=== PATIENT | female | born 1990 | race Two or more races ===

== ENCOUNTER 2025-05-18 21:42 | Emergency (ER) | payer OTHER ==
[~2025-05-18] VITALS: Ht 157.5 cm; Wt 69.3 kg
--- NOTE | 2025-05-18 22:11 | DVH ---
Date: 05/18/2025 09:57 PM Examination: XY KUB ABDOMEN SINGLE VIEW History: constipation Comparison: None TECHNIQUE: Frontal views of the abdomen was obtained. FINDINGS: Bowel gas pattern is unremarkable. The lung bases are unremarkable. No acute osseous abnormality identified. IUD in the pelvis IMPRESSION: 1. Nonobstructive bowel gas pattern. 2. Stool throughout the colon
--- NOTE | 2025-05-18 22:57 | ED.PDOC ---
History of Present Illness HPI Comments 34-year-old female, with a history of constipation, presents with spouse for chief complaint of constipation, with associated lower abdominal and rectal pain. Patient and but this is on three day history of symptoms. She states on being evaluated and recent imaging studies that confirmed constipation from a [facility] facility for symptoms following onset and taking prescribed Lactulose, with no improvement or relief. Denial of any nausea, vomiting, diarrhea, rectal bleeding or further associated symptoms. Chief Complaint: Abdominal Pain Time Seen by MD: 21:50 Reviewed Notes: Nurses Notes, Medications, Allergies Allergies: Coded Allergies: NO KNOWN ALLERGIES (Unverified , 05/18/25) Information Source: Patient Mode of Arrival: Wheelchair Severity: Moderate Timing: Days Duration: Since onset Prehospital treatment: Other (See HPI) Past Medical History Past Medical History (Other): History of constipation Surgical History: Denies all surgeries TRANSPORTATION ASSISTANT History: Denies all TRANSPORTATION ASSISTANT Hx Family History Family History: Unknown Social History Smoker: Non-Smoker Alcohol: Denies ETOH Use Drugs: Denies Drug Use Lives In: Home All Other Systems: Reviewed and Negative (Comprehensive systems review obtained and negative except for what is stated in the HPI.) Physical Exam General Appearance: No Apparent Distress, Normal HEENT: Normal ENT Inspection, Pharynx Normal, TMs Normal Neck: Full Range of Motion, Non-Tender, Normal, Normal Inspection Respiratory: Chest Non-Tender, Lungs Clear, No Accessory Muscle Use, No Respiratory Distress, Normal Breath Sounds Cardiovascular: No Edema, No JVD, No Murmur, No Gallop, Normal Peripheral Pulses, Regular Rate/Rhythm Breast Exam: Deferred Gastrointestinal: Abnormal Bowel Sounds (decreased bowel sounds in all four quadrants ), No Organomegaly, Non Tender, No Pulsatile Mass, Soft Genitalia: Deferred Pelvic: Deferred Rectal: Deferred Extremities: No calf tenderness, Normal capillary refill, Normal inspection, Normal range of motion, Non-tender, No pedal edema Musculoskeletal : Apperance: Normal Neurologic: Alert, animal ecologist II-XII nml as Tested, No Motor Deficits, Normal Affect, Normal Mood, No Sensory Deficits Cerebellar Function: Normal Reflexes: Normal Skin: Dry, Normal Color, Warm Lymphatic: No Adenopathy Was a procedure done? Was a procedure done?: No Differential Dx Considerations may include: constipation, bowel obstruction, among others X-Ray, Labs, Meds, VS Vital Signs Date Time Temp Pulse Resp B/P (MAP) Pulse Ox O2 Delivery O2 Flow Rate FiO2 05/18/25 21:44 97.8 102 17 151/[address] [address] Ph: [phone] DIAGNOSTIC IMAGING Diagnostic Imaging Report : [id number] Signed PATIENT: AYDEE PUCKETT ACCT: [id number] UNIT: [id number] : 1990 LOC: ER ROOM / BED: / AGE / SEX: 34 / F ADM STATUS: REG ER SERVICE 54 ORDERING PHYSICIAN: JOSE DANIEL SAUCEDO MD PROCEDURE(s): KUB - KUB ABDOMEN SINGLE VIEW REASON: constipation ORDER NUMBER(s): [id number], ACCESSION NUMBER(s): [id number] Date: 05/18/2025 09:57 PM Examination: XY KUB ABDOMEN SINGLE VIEW History: constipation Comparison: None TECHNIQUE: Frontal views of the abdomen was obtained. FINDINGS: Bowel gas pattern is unremarkable. The lung bases are unremarkable. No acute osseous abnormality identified. IUD in the pelvis IMPRESSION: 1. Nonobstructive bowel gas pattern. 2. Stool throughout the colon ATED BY: DONY CHO Jr., DO DICTATED DATE/TIME: 05/18/252208 SIGNED BY: DONY CHO Jr., SIGNED DATE/TIME: 05/18/252208 CC: Time of 1ST Reevaluation: 22:20 Reevaluation 1ST: Unchanged Patient Education/Counseling: Diagnosis, Treatment, Need For Follow Up Family Education/Counseling: Diagnosis, Treatment, Need For Follow Up Comments Patient has constipation. This was diagnosed earlier at [facility] as I started to use enema which she did without success. Her abdomen and is soft nontender nondistended. KUB shows she does have constipation. I will prescribe her lactulose to help her relieve this. Additional Information Previous visits reviewed: N/A The following tests were ordered, and results were reviewed by me: KUB abdomen X-ray Additional Information was gathered from interviewing the following independent historians: N/A I reviewed and agreed with the following test results read by other providers: KUB abdomen X-ray I discussed treatment and results with medical personnel and: patient SEPSIS Sepsis Screen Date sepsis recognized/suspect: May 18, 2025 Time Sepsis recognized/suspect: 2143 Recent Procedure: No On Antibiotic Therapy: No Respiratory Rate >20: No Heart Rate >90: Yes Temp<36 C (96.8 F) or >38.3 C: No SBP <90 or MAP <65 mmHG: No New Acute Mental Status Change: No Is the patient on CPAP, BIPAP,: No Physician Orders Kub Abdomen Single View (05/18/25 21:55) Vital Signs Date Time Temp Pulse Resp B/P (MAP) Pulse Ox O2 Delivery O2 Flow Rate FiO2 05/18/25 21:44 97.8 102 17 151/70 100 97.8 Departure 1 Departure Time of Disposition: 00:09 Impression: Primary Impression: Constipated Qualified Codes: K59.01 - Slow transit constipation Disposition: HOME / SELF CARE / HOMELESS Condition: Good e-Prescriptions Lactulose (Lactulose) 10 Gm [place] 10 GM PO BIDPRN PRN for 2 Days, #4 PACK Prov: JOSE DANIEL SAUCEDO MD 05/19/25 Discharged With: Self, Spouse Critical Care Note Critical Care Time?: No Stability Stability form required: No Heart Score Heart Score: Heart Score Response (Comments) Value History N/A 0 EKG N/A 0 Age N/A 0 Risk Factors N/A 0 Troponin N/A 0 Total 0 I personally scribed for JOSE DANIEL SAUCEDO MD ([email or web address]) on 05/18/25 at 22:57. Electronically submitted by Mil Garcia [email or web address]). JOSE DANIEL SAUCEDO MD May 18, 2025 22:57
[2025-05-19] MEDS ORDERED: LACT10PA2 PO (00:10)
[2025-05-19] MEDS: LACTULOSE 20Gm/30ML SOLN PO ONE (01:08)
[2025-05-19 01:12] VITALS: PULSE 93; RESP 16; O2SAT 97
[2025-05-19 01:14] VITALS: BP 128/71; PULSE 93; RESP 16; TEMP 98.2; O2SAT 97
== END 2025-05-19 01:15 | disposition home or self-care (01) ==
LOC: ER 21:42
DX: K59.00 Constipation, unspecified (principal); K62.89 Other specified diseases of anus and rectum
CPT/HCPCS: 74018